=== PATIENT | male | born 1950 | race Caucasian/White ===

== ENCOUNTER → 2021-02-26 | Outpatient (CLI) | payer MEDICARE ==
[~2021-02-26] MED LIST: ATEN25TA PO; D 101000 PO; DILT-65 PO; ELIQ5TAB PO; LOVA40TA PO; PANT40TA29 PO
== END ==
LOC: M ONCR 09:52
PROVIDERS: ATTEND Radiology Radiation Oncology
DX: C61 Malignant neoplasm of prostate (principal); E78.00 Pure hypercholesterolemia, unspecified; I10 Essential (primary) hypertension; I48.91 Unspecified atrial fibrillation; Z79.899 Other long term (current) drug therapy; Z80.42 Family history of malignant neoplasm of prostate

== ENCOUNTER → 2021-03-11 | Outpatient (CLI) | payer MEDICARE ==
[~2021-03-11] MED LIST changes: +GASTROGRAFIN SOLUTION 30ML (Q9963) ONE
--- NOTE | 2021-03-12 15:42 | REP ---
INDICATION: PANCREATITIS. COMPARISON: Multiple the latest 02/26/2021 and all from different outside institutions TECHNIQUE: Standard helical technique without intravenous contrast. The patient refused intravenous contrast. Oral bowel preparatory contrast was administered prior to the exam. FINDINGS: The lung bases have improved. The left pleural effusion has gotten smaller. The liver and spleen are unchanged. The adrenal glands and kidneys are unchanged. There is a stable left renal cyst. Once again, there are multiple pancreatic pseudocysts the largest measures 7.9 cm in its greatest dimension previously 7 cm. Increased peripancreatic densities are also identified status quo. This is difficult to evaluate without intravenous contrast. There is no significant change in appearance of the bowel loops or the mesenteries. No free fluid or free air has developed. There is no significant change in appearance of the abdominal aorta or para-regions. The imaged osseous structures are stable and intact. 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 Continued follow-up is suggested. The left pleural effusion seen previously has gotten smaller. <Electronically signed by Jayme Bhakta > 03/12/21 0734
== END ==
LOC: M PLAIMG 11:08
PROVIDERS: ATTEND Internal Medicine Gastroenterology
DX: K80.20 Calculus of gallbladder without cholecystitis without obstruction (principal); K86.3 Pseudocyst of pancreas; K85.92 Acute pancreatitis with infected necrosis, unspecified
CPT/HCPCS: 74176; Q9963

== ENCOUNTER → 2021-04-10 | Outpatient (CLI) | payer MEDICARE, BC ==
[~2021-04-10] MED LIST changes: +CIPR750T2 PO; +CREO12CA PO; -GASTROGRAFIN SOLUTION 30ML (Q9963) ONE; +LIDOCAINE 2% MDV 20ML VIAL XX ONE; +LIDOCAINE VISCOUS 2% SOLN 15ML UDC XX ONE; +LORA1TAB4 PO; +ONDA-83 PO
[2021-04-10 16:03] VITALS: BP 134/81
== END ==
LOC: M ONCR 12:53
PROVIDERS: ATTEND General Practice
DX: C61 Malignant neoplasm of prostate (principal)
CPT/HCPCS: 55874; 55876; A4648

== ENCOUNTER → 2021-04-20 | Outpatient (CLI) | payer MEDICARE, BC ==
[~2021-04-20] MED LIST changes: +GASTROGRAFIN SOLUTION 30ML (Q9963) ONE; +ISOVUE-370 76% 100ML VIAL ONE; -LIDOCAINE 2% MDV 20ML VIAL XX ONE; -LIDOCAINE VISCOUS 2% SOLN 15ML UDC XX ONE
== END ==
LOC: M PLAIMG 09:37
PROVIDERS: ATTEND Internal Medicine Gastroenterology
DX: K86.3 Pseudocyst of pancreas (principal); K85.90 Acute pancreatitis without necrosis or infection, unspecified; K80.20 Calculus of gallbladder without cholecystitis without obstruction; J90 Pleural effusion, not elsewhere classified; J84.10 Pulmonary fibrosis, unspecified; N28.1 Cyst of kidney, acquired
CPT/HCPCS: 74178; Q9963; Q9967

== ENCOUNTER 2021-05-21 09:22 | Outpatient (RCR) | payer MEDICARE, BC ==
[~2021-05-21 09:22] MED LIST changes: -CREO12CA PO; -GASTROGRAFIN SOLUTION 30ML (Q9963) ONE; -ISOVUE-370 76% 100ML VIAL ONE; -ONDA-83 PO
== END 2021-05-22 ==
LOC: M ONCR 09:22
PROVIDERS: ATTEND General Practice
DX: Z51.0 Encounter for antineoplastic radiation therapy (principal); C61 Malignant neoplasm of prostate; R10.32 Left lower quadrant pain

== ENCOUNTER → 2021-06-17 | Outpatient (CLI) | payer MEDICARE, BC ==
[~2021-06-17] MED LIST changes: +CREO12CA PO
[2021-06-17 10:34] LABS: BASO % 0.2 % (0.0-1.0); EOS % 0.8 % (0.0-3.0); HEMATOCRIT 32.5 % (42.0-52.0); HEMOGLOBIN 10.4 g/dl (13.5-17.5); LYMPH # 0.6 10^3/uL (1.5-5.0); MEAN CORPUSCULAR HEMOGLOBIN 31.1 pg (27.0-33.0); MEAN CORPUSCULAR VOLUME 97.3 fl (80.0-96.0); MONO # 0.5 10^3/uL (0.0-0.8); NEUTROPHILS % 77.4 % (36.0-66.0); PLATELET COUNT, AUTOMATED 266 10^3/uL (150-450); RED BLOOD COUNT 3.34 10^6/uL (4.30-6.10); WHITE BLOOD COUNT 5.2 10^3/uL (4.0-10.0)
[2021-06-17 10:58] LABS: ALBUMIN 2.8 GM/DL (3.2-5.2); BILIRUBIN,TOTAL 0.5 MG/DL (0.2-1.0); CALCIUM LEVEL 8.6 MG/DL (8.8-10.2); CREATININE FOR GFR 1.47 MG/DL (0.70-1.30); GLOMERULAR FILTRATION RATE 50.1 (>42); TOTAL PROTEIN 7.1 GM/DL (6.4-8.2)
== END ==
LOC: M ONCR 10:18
PROVIDERS: ATTEND General Practice
DX: C61 Malignant neoplasm of prostate (principal)

== ENCOUNTER → 2021-06-22 | Outpatient (RCR) | payer MEDICARE, BC | LOC: M ONCR 05-25 09:24 | PROVIDERS: ATTEND General Practice | DX: C61 Malignant neoplasm of prostate (principal) ==

== ENCOUNTER 2021-06-29 13:00 | Outpatient (RCR) | payer MEDICARE, BC ==
[2021-07-09] MEDS ORDERED: ONDA-83 PO ×2 (09:38→14:49)
[2021-07-09] MEDS ORDERED: CIPR750T2 PO (14:49)
== END 2021-07-20 ==
LOC: M ONCR 13:00
PROVIDERS: ATTEND General Practice
DX: C61 Malignant neoplasm of prostate (principal)

== ENCOUNTER → 2021-07-09 | Outpatient (CLI) | payer MEDICARE, BC ==
[~2021-07-09] MED LIST changes: +ONDA-83 PO
[2021-07-09 10:00] LABS: BASO % 0.1 % (0.0-1.0); HEMATOCRIT 31.9 % (42.0-52.0); HEMOGLOBIN 10.4 g/dl (13.5-17.5); LYMPH # 0.6 10^3/uL (1.5-5.0); MEAN CORPUSCULAR HEMOGLOBIN 30.9 pg (27.0-33.0); MEAN CORPUSCULAR HGB CONC 32.6 g/dl (32.0-36.5); MEAN CORPUSCULAR VOLUME 94.7 fl (80.0-96.0); MONO # 1.1 10^3/uL (0.0-0.8); MONO % 9.1 % (2.0-8.0); NEUTROPHILS # 10.3 10^3/uL (1.5-8.5); NEUTROPHILS % 84.9 % (36.0-66.0); PLATELET COUNT, AUTOMATED 452 10^3/uL (150-450); RED BLOOD COUNT 3.37 10^6/uL (4.30-6.10); WHITE BLOOD COUNT 12.1 10^3/uL (4.0-10.0)
[2021-07-09 10:17] LABS: INR 1.09; PROTHROMBIN TIME 14.5 SECONDS (12.7-14.5)
[2021-07-09 10:49] LABS: ALBUMIN 2.4 GM/DL (3.2-5.2); BILIRUBIN,TOTAL 0.7 MG/DL (0.2-1.0); CALCIUM LEVEL 9.4 MG/DL (8.8-10.2); CREATININE FOR GFR 1.72 MG/DL (0.70-1.30); GLOMERULAR FILTRATION RATE 41.8 (>42); PREALBUMIN 8.8 MG/DL (20.0-40.0); TOTAL PROTEIN 6.7 GM/DL (6.4-8.2)
== END ==
LOC: M ONCR 09:00
PROVIDERS: ATTEND General Practice
DX: C61 Malignant neoplasm of prostate (principal); R11.2 Nausea with vomiting, unspecified
CPT/HCPCS: 80053; 82150; 82977; 83690; 84134; 85025; 85610; G0463

== ENCOUNTER → 2021-10-06 | Outpatient (CLI) | payer MEDICARE, BC | LOC: M ONCR 08:48 | PROVIDERS: ATTEND General Practice | DX: C61 Malignant neoplasm of prostate (principal); Z79.899 Other long term (current) drug therapy; Z87.891 Personal history of nicotine dependence; Z92.3 Personal history of irradiation; Z92.29 Personal history of other drug therapy ==

== ENCOUNTER → 2021-10-14 | Outpatient (CLI) | payer MEDICARE, BC | LOC: M RAD 06:25 | PROVIDERS: ATTEND Internal Medicine Gastroenterology | DX: K83.9 Disease of biliary tract, unspecified (principal); K31.5 Obstruction of duodenum; K86.3 Pseudocyst of pancreas; Z53.9 Procedure and treatment not carried out, unspecified reason ==

== ENCOUNTER → 2021-11-06 | Outpatient (CLI) | payer MEDICARE, BC ==
[~2021-11-06] MED LIST changes: +PROHANCE 279.3MG/ML 5ML VIAL As Ordered ONE
== END ==
LOC: M RAD 16:24
PROVIDERS: ATTEND Internal Medicine Gastroenterology
DX: K83.9 Disease of biliary tract, unspecified (principal); N28.1 Cyst of kidney, acquired; J90 Pleural effusion, not elsewhere classified
CPT/HCPCS: 74183; A9576

== ENCOUNTER → 2022-04-08 | Outpatient (CLI) | payer BC, MEDICARE ==
[~2022-04-08] MED LIST changes: +FLOM0.4C39 PO; -PROHANCE 279.3MG/ML 5ML VIAL As Ordered ONE
== END ==
LOC: M ONCR 11:25
PROVIDERS: ATTEND General Practice
DX: C61 Malignant neoplasm of prostate (principal); Z79.899 Other long term (current) drug therapy; Z87.891 Personal history of nicotine dependence; Z92.23 Personal history of estrogen therapy; Z92.3 Personal history of irradiation

== ENCOUNTER → 2022-10-06 | Outpatient (CLI) | payer MEDICARE ==
[~2022-10-06] MED LIST changes: +ISOVUE-300 61% 100ML VIAL ONE; +LIDOCAINE 1% MDV 20ML VIAL ONE; +LORA1TAB23 PO; -LORA1TAB4 PO; +PROHANCE 279.3MG/ML 5ML VIAL ONE
== END ==
LOC: M PLAIMG 12:03
PROVIDERS: ATTEND Orthopaedic Surgery
DX: M25.552 Pain in left hip (principal)
CPT/HCPCS: 27093; 73723; 76000; A9576; Q9967

== ENCOUNTER → 2022-10-08 | Outpatient (CLI) | payer MEDICARE ==
[~2022-10-08] MED LIST changes: -ISOVUE-300 61% 100ML VIAL ONE; -LIDOCAINE 1% MDV 20ML VIAL ONE; -PROHANCE 279.3MG/ML 5ML VIAL ONE
== END ==
LOC: M ONCR 10:50
PROVIDERS: ATTEND Radiology Radiation Oncology
DX: C61 Malignant neoplasm of prostate (principal); Z92.3 Personal history of irradiation; Z79.899 Other long term (current) drug therapy; Z87.891 Personal history of nicotine dependence; Z72.89 Other problems related to lifestyle; Z92.29 Personal history of other drug therapy; R97.21 Rising PSA following treatment for malignant neoplasm of prostate
CPT/HCPCS: G0463 ×2

== ENCOUNTER → 2023-04-12 | Outpatient (CLI) | payer MEDICARE, OTHER ==
[~2023-04-12] MED LIST changes: +OMEG10002 PO; +SUCR1TAB56 PO; +VITA500065 PO
== END ==
LOC: M ONCR 10:50
PROVIDERS: ATTEND General Practice
DX: C61 Malignant neoplasm of prostate (principal); Z71.2 Person consulting for explanation of examination or test findings; Z79.899 Other long term (current) drug therapy; Z87.891 Personal history of nicotine dependence; Z92.3 Personal history of irradiation

== ENCOUNTER → 2024-04-12 | Outpatient (CLI) | payer MEDICARE, OTHER | LOC: M ONCR 10:45 | PROVIDERS: ATTEND General Practice | DX: C61 Malignant neoplasm of prostate (principal); R35.0 Frequency of micturition; R19.4 Change in bowel habit; Z87.891 Personal history of nicotine dependence; Z79.899 Other long term (current) drug therapy; Z92.29 Personal history of other drug therapy; Z92.3 Personal history of irradiation ==

== ENCOUNTER → 2025-04-12 | Outpatient (CLI) | payer MEDICARE ==
[~2025-04-12] MED LIST changes: -FLOM0.4C39 PO; +TAMS-18 PO
== END ==
LOC: M ONCR 10:41
PROVIDERS: ATTEND General Practice
DX: C61 Malignant neoplasm of prostate (principal); Z92.3 Personal history of irradiation; Z92.29 Personal history of other drug therapy; Z87.891 Personal history of nicotine dependence; Z72.89 Other problems related to lifestyle; Z79.899 Other long term (current) drug therapy